=== PATIENT | female | born 1970 | race Caucasian/White ===

== ENCOUNTER 2022-04-27 10:05 | Emergency (ER) | payer OTHER ==
[~2022-04-27] VITALS: Ht 162.6 cm; Wt 90.7 kg
== END 2022-04-27 14:38 | disposition home or self-care (01) ==
LOC: ER 10:05
DX: R42 Dizziness and giddiness (principal); R09.81 Nasal congestion; Z20.822 Contact with and (suspected) exposure to COVID-19